=== PATIENT | male | born 1940 | race Caucasian/White ===

== ENCOUNTER → 2022-05-16 | Outpatient (CLI) | payer MEDICARE ==
[~2022-05-16] MED LIST: Z LABETALOL HCL PO; Z.0.AMARYL2 MG PO; Z.0.AVAPRO300 MG PO; Z.0.GLUCOPHAGE1000 M PO; Z.0.SIMVASTATIN20 MG PO; [UNRECOGNIZED DRUG - OTHER] PO
== END ==
LOC: MRI 08:48
PROVIDERS: ATTEND Physician Assistant
DX: M47.816 Spondylosis without myelopathy or radiculopathy, lumbar region (principal); M54.50 Low back pain, unspecified; G89.29 Other chronic pain
CPT/HCPCS: 72148

== ENCOUNTER 2022-06-19 10:45 | Outpatient (RCR) | payer MEDICARE | END 2022-06-21 | LOC: PT 10:45 | PROVIDERS: ATTEND Physician Assistant | DX: M47.816 Spondylosis without myelopathy or radiculopathy, lumbar region (principal) ==

== ENCOUNTER → 2023-10-10 | Outpatient (REF) | payer MEDICARE ==
[~2023-10-10] MED LIST changes: +HYDRALAZINE HCL10 MG PO
== END ==
LOC: RAD 14:24
PROVIDERS: ATTEND Internal Medicine
DX: M54.12 Radiculopathy, cervical region (principal); M25.511 Pain in right shoulder; M19.011 Primary osteoarthritis, right shoulder
CPT/HCPCS: 72040

== ENCOUNTER 2024-08-03 08:24 | Day surgery (SDC) | payer MEDICARE ==
[2024-08-02 10:46] LABS: BASOPHILS % 0.5 % (0.0-1.0); EOSINOPHILS # (AUTO) 0.1 (0.0-0.4); HEMATOCRIT 48.5 % (38.2-49.6); HEMOGLOBIN 15.7 g/dL (14.0-18.0); LYMPHOCYTES # (AUTO) 0.9 (1.0-3.2); LYMPHOCYTES % 22.9 % (18.0-39.1); MEAN CORPUSCULAR HEMOGLOBIN 31.7 pg (28-32); MEAN CORPUSCULAR HGB CONC 32.4 g/dL (31-35); MEAN CORPUSCULAR VOLUME 97.8 fL (81-99); MONOCYTES # (AUTO) 0.3 (0.2-0.8); MONOCYTES % 8.5 % (4.4-11.3); NEUTROPHILS # (AUTO) 2.6 (2.1-6.9); NEUTROPHILS % 64.9 % (38.7-80.0); PLATELET COUNT 101 x10e3/uL (140-360); RED BLOOD COUNT 4.96 x10e6/uL (4.3-5.7); RED CELL DISTRIBUTION WIDTH 13.9 % (11.7-14.4); WHITE BLOOD COUNT 4.01 x10e3/uL (4.8-10.8)
[2024-08-02 11:06] LABS: INR 0.94; PROTHROMBIN TIME 13.2 seconds (11.9-14.5)
[2024-08-02 11:07] LABS: PARTIAL THROMBOPLASTIN TIME 29.7 seconds (23.8-35.5)
[2024-08-02 11:08] LABS: COVID 19 ANTIGEN NOT DETECTED (NEGATIVE)
[2024-08-02 11:19] LABS: ALANINE AMINOTRANSFERASE 17 IU/L (0-55); ALBUMIN 3.7 g/dL (3.5-5.0); ALBUMIN/GLOBULIN RATIO 1.3 (0.8-2.0); ALKALINE PHOSPHATASE 73 IU/L (40-150); BILIRUBIN,TOTAL 0.9 mg/dL (0.2-1.2); BLOOD UREA NITROGEN 18 mg/dL (7-26); BUN/CREATININE RATIO 22 (6-25); CALCIUM 9.3 mg/dL (8.4-10.2); CARBON DIOXIDE 24 mmol/L (22-29); CHLORIDE 107 mmol/L (98-107); CHOL/HDL RATIO 2.9 (3.9-4.7); CHOLESTEROL 144 MD/DL (0-199); CREATININE, SERUM 0.82 mg/dL (0.72-1.25); EST GLOMERULAR FILTRATION RATE 88 ML/MIN (>=60); GLUCOSE 244 mg/dL (74-118); HDL CHOLESTEROL 49 MG/DL (40-60); LDL CHOLESTEROL 67 MG/DL (60-130); SODIUM 140 mmol/L (136-145); TOTAL PROTEIN 6.6 g/dL (6.5-8.1); TRIGLYCERIDES 138 MG/DL (0-149)
[2024-08-03] VITALS (15 sets, daily range): BP systolic 136–181; BP diastolic 51–97; PULSE 49–62; RESP 12–20; TEMP 96.3–97.8; O2SAT 95–100
[~2024-08-03] VITALS: Ht 172.7 cm; Wt 83.9 kg
[~2024-08-03 08:24] MED LIST changes: +ATORVASTATIN CA20 MG PO; +BACTRIM DS TAB1 EACH PO; +CARVEDILOL12.5 MG PO; +GABAPENTIN300 MG PO; +GLIMEPIRIDE2 MG PO; +GLIMEPIRIDE4 MG; +JARDIANCE25 MG; +LOSARTAN POTAS100 MG PO; +MELOXICAM7.5 MG PO; +PIOGLITAZONE45 MG; +SPIRONOLACTONE25 MG PO; +TIZANIDINE HCL4 M1 PO; +ULTRAM 50MG50 MG PO
[2024-08-03] MEDS ORDERED: SODIUM CHLORIDE 0.9% 1000ML 1,000 ML ONE ×3 (09:20→11:14)
[2024-08-03] MEDS ORDERED: HEPARIN SOD (PORCINE) 1000 UNIT/ML 30ML ONE (09:32)
[2024-08-03] MEDS ORDERED: IOPAMIDOL 370 MG/ML 100 ML INFUS..BTL INJ ONE (09:33)
[2024-08-03] MEDS ORDERED: VERAPAMIL HCL 2.5 MG/ML 2 ML VIAL ONE (09:33)
[2024-08-03] MEDS ORDERED: LIDOCAINE HCL 2% LOCAL 20 ML VIAL ONE (09:33)
[2024-08-03] MEDS ORDERED: NITROGLYCERIN/D5W 200 MCG/ML 250 ML ONE (09:33)
[2024-08-03] MEDS ORDERED: HEPARIN SOD/SOD CHLORIDE 2,000 ML ONE (09:33)
[2024-08-03] MEDS ORDERED: MIDAZOLAM HCL 2 MG/2 ML VIAL ONE (09:55)
[2024-08-03] MEDS ORDERED: FENTANYL CITRATE/PF 100MCG/2 ML INJ ONE (09:56)
[2024-08-03] MEDS: ASPIRIN 325 MG TAB ONE (11:47)
== END 2024-08-03 15:00 | disposition home or self-care (01) ==
LOC: CATH LAB 08:24
PROVIDERS: ATTEND Internal Medicine Cardiovascular Disease
DX: I25.119 Atherosclerotic heart disease of native coronary artery with unspecified angina pectoris (principal); R94.39 Abnormal result of other cardiovascular function study; I10 Essential (primary) hypertension; E78.5 Hyperlipidemia, unspecified; R01.1 Cardiac murmur, unspecified; R60.0 Localized edema; E11.9 Type 2 diabetes mellitus without complications; Z71.3 Dietary counseling and surveillance; Z11.52 Encounter for screening for COVID-19; Z79.84 Long term (current) use of oral hypoglycemic drugs; Z79.1 Long term (current) use of non-steroidal anti-inflammatories (NSAID); Z79.899 Other long term (current) drug therapy; Z82.49 Family history of ischemic heart disease and other diseases of the circulatory system; Z83.3 Family history of diabetes mellitus
CPT/HCPCS: 0223U; 36415; 76937; 80053; 80061; 85025; 85610; 85730; 93005; 93458; C1887; J1644; J2003; J2250; J3010; J7030; Q9967; 99152

== ENCOUNTER → 2024-11-03 | Outpatient (REF) | payer MEDICARE | LOC: RAD 10:55 | PROVIDERS: ATTEND Internal Medicine | DX: M47.812 Spondylosis without myelopathy or radiculopathy, cervical region (principal) | CPT/HCPCS: 72040 ==

== ENCOUNTER 2025-05-19 09:44 | Emergency (ER) | payer MEDICARE ==
[~2025-05-19] VITALS: Ht 172.7 cm; Wt 81.6 kg
[2025-05-19 09:53] VITALS: TEMP 98.2
[2025-05-19] MEDS: KETOROLAC TROMETHAMINE 30 MG/ML VIAL IM STA (10:44)
[2025-05-19] MEDS: DEXAMETHASONE SOD PHOS 10 MG/1 ML VIAL IM ONE (10:45)
[2025-05-19] MEDS: HYDROCODONE/APAP 5MG-325MG TAB PO ONE (10:45)
[2025-05-19] MEDS: DIAZEPAM 2 MG TAB PO ONE (11:22)
[2025-05-19 12:30] VITALS: PULSE 60; RESP 18
[2025-05-19] MEDS ORDERED: PREDNISONE20 MG PO (13:51)
[2025-05-19 14:09] VITALS: BP 147/73; PULSE 65; RESP 18; TEMP 97.3; O2SAT 98
== END 2025-05-19 14:10 | disposition home or self-care (01) ==
LOC: ER 10:01
DX: M25.552 Pain in left hip (principal); M54.42 Lumbago with sciatica, left side; E11.9 Type 2 diabetes mellitus without complications; I10 Essential (primary) hypertension; E78.5 Hyperlipidemia, unspecified; Z85.828 Personal history of other malignant neoplasm of skin
CPT/HCPCS: 72131; 73700; 99283; J1100; J1885